=== PATIENT | female | born 1990 | race Asian ===

== ENCOUNTER 2019-10-31 14:14 | Emergency (ER) | payer OTHER ==
[~2019-10-31] VITALS: Ht 165.1 cm; Wt 90.7 kg
[~2019-10-31 14:14] MED LIST: ACEBUTCAFT PO; AEROECLIPSE II1 EACH MC; ALBU90OI INH; ALBU90OI61 INH; AMIT10 PO; AMOX500 PO; ASPI81EC PO; AZIT250 PO; BENZ100A PO; CEPH500 PO; CIPR500 PO; CLIN150 PO; CLIN300 PO; CODBUTACEC; CYCL10 PO; Cipro500 MG PO; DIPATR PO; DOXY100 PO; ESCI10; Flagyl500 MG PO; GABA300 PO; GUAI120S1 PO; HYDACE10B PO; HYDACE5 PO; IBUP600 PO; IBUP800; IBUP800 PO; LOPE2C PO; METPRE4DP PO; MUSCLE RELAXER; NAPR500 PO; NAPR500EC PO; NAPR550 PO; OMEP20ER PO; ONDA4 PO; ONDA4ODT MM; ONDA8ODT MM; OXYACE5T PO; PHENA200 PO; PRAM.5; PRED20 PO; PROM25 PO; Prednisone20 MG PO; QUET100; RANI150 PO; RESTLESS LEG MED; RXCEPH500 PO; RXOXYACE PO; RXPHEN200 PO; RXPROM25 PO; SULTRIDS PO; TRAM50; TRAM50 PO; TRI-SPRINTEC PO; Ultram50 MG PO; VICODIN; Ventolin Soln3 ML INH; YAZ BCP; Zithromax250 MG PO; Zofran8 MG PO; [UNRECOGNIZED DRUG - OTHER]; [UNRECOGNIZED DRUG - REMARK]; [UNRECOGNIZED DRUG - REMARK]
[2019-10-31 15:10] LABS: BASOPHILS ABSOLUTE AUTO 0.04 K/mm3 (0.00-0.23); BASOPHILS PERCENT AUTO 1 % (0-2); EOSINOPHILS ABSOLUTE AUTO 0.05 K/mm3 (0.00-0.68); EOSINOPHILS PERCENT AUTO 1 % (0-6); Hematocrit 39.5 % (33.0-51.0); Hemoglobin 12.9 g/dL (11.5-16.0); IMMATURE GRAN ABSOLUTE AUTO 0.04 K/mm3 (0.00-0.10); IMMATURE GRAN PERCENT AUTO 1 % (0-1); LYMPHOCYTES ABSOLUTE AUTO 1.27 K/mm3 (0.84-5.20); LYMPHOCYTES PERCENT AUTO 17 % (21-46); MONOCYTES ABSOLUTE AUTO 0.34 K/mm3 (0.16-1.47); MONOCYTES PERCENT AUTO 5 % (4-13); Mean Corpuscular HGB Conc 32.7 g/dL (31.5-36.5); Mean Corpuscular Volume 101 fL (80-100); Mean Platelet Volume 9.1 fL (9.1-12.4); NEUTROPHILS ABSOLUTE AUTO 5.59 K/mm3 (1.96-9.15); NEUTROPHILS PERCENT AUTO 76 % (41-73); Platelet Count 393 K/mm3 (150-400); RDW Coefficient Variation 15.6 % (11.7-14.2); RDW Standard Deviation 55.6 fL (35.1-46.3); Red Blood Cell Count 3.91 M/mm3 (3.80-5.20); White Blood Cell Count 7.33 K/mm3 (4.00-11.30)
[2019-10-31 15:30] LABS: Alanine Aminotransfer (ALT/SGP 24 U/L (12-78); Albumin, Blood 2.7 g/dL (3.4-5.0); Albumin/Globulin Ratio 0.6 (0.8-1.8); Alk Phos 153 U/L (50-136); Anion Gap 11 mmol/L (6-16); Aspartate Aminotrans (AST/SGOT 100 U/L (12-37); Blood Urea Nitrogen 5 mg/dL (8-24); Bun/Creatinine Ratio 12.7 (12.0-20.0); CO2, Blood 26 mmol/L (21-32); Calcium, Blood 8.8 mg/dL (8.5-10.1); Chloride, Blood 103 mmol/L (98-108); Creatinine, Blood 0.39 mg/dL (0.40-1.00); Globulin, Blood 4.5 g/dL (2.2-4.0); Glomerular Filtration Rate >60 (60-); Glucose, Blood 76 mg/dL (70-99); Sodium, Blood 140 mmol/L (136-145); Total Protein, Blood 7.2 g/dL (6.4-8.2)
[2019-10-31 15:48] LABS: Source, Urine Clean Catch
[2019-10-31 15:54] LABS: Appearance, Urine Hazy (Clear); Blood, Urine 1+ (Neg); Color, Urine Amber (P-Yellow); Glucose Qualitative, Urine Neg (Neg); Ketones, Urine 3+ (Neg); Leukocyte Esterase, Urine 1+ (Neg); Nitrite, Urine Neg (Neg); Protein, Urine 2+ (Neg); Urobilinogen, Urine 4+ (Normal)
[2019-10-31 16:10] LABS: Bilirubin, Urine 2+ (Neg)
[2019-10-31 16:11] LABS: Bacteria Many /hpf; Mucus Mod (0-Heavy); Red Blood Cells, Urine 0-2 /hpf (0-2); Squamous Epithelial Cells Mod /hpf (Few)
== END 2019-10-31 17:07 | disposition home or self-care (01) ==
LOC: ER 14:14
PROVIDERS: Physician Assistant
DX: K29.20 Alcoholic gastritis without bleeding (principal); F10.20 Alcohol dependence, uncomplicated; E87.6 Hypokalemia; J45.909 Unspecified asthma, uncomplicated; F17.200 Nicotine dependence, unspecified, uncomplicated; Z91.048 Other nonmedicinal substance allergy status; Z88.5 Allergy status to narcotic agent; Z79.899 Other long term (current) drug therapy; Z79.51 Long term (current) use of inhaled steroids
CPT/HCPCS: 36415; 80053; 81001; 81025; 83690; 85025; 87086; 99284

== ENCOUNTER 2020-10-11 19:31 | Emergency (ER) | payer OTHER ==
[~2020-10-11] VITALS: Ht 165.1 cm; Wt 93.0 kg
[~2020-10-11 19:31] MED LIST changes: +Librium25 MG PO
[2020-10-11] MEDS ORDERED: METF500 PO (20:28)
[2020-10-11 20:39] LABS: BASOPHILS ABSOLUTE AUTO 0.04 K/mm3 (0.00-0.23); BASOPHILS PERCENT AUTO 0 % (0-2); EOSINOPHILS PERCENT AUTO 0 % (0-6); Hemoglobin 13.6 g/dL (11.5-16.0); IMMATURE GRAN ABSOLUTE AUTO 0.07 K/mm3 (0.00-0.10); IMMATURE GRAN PERCENT AUTO 1 % (0-1); LYMPHOCYTES ABSOLUTE AUTO 0.93 K/mm3 (0.84-5.20); LYMPHOCYTES PERCENT AUTO 10 % (21-46); MONOCYTES ABSOLUTE AUTO 0.36 K/mm3 (0.16-1.47); MONOCYTES PERCENT AUTO 4 % (4-13); Mean Corpuscular HGB 33.8 pg (26.0-34.0); Mean Corpuscular HGB Conc 33.2 g/dL (31.5-36.5); Mean Corpuscular Volume 102 fL (80-100); Mean Platelet Volume 10.2 fL (9.1-12.4); NEUTROPHILS ABSOLUTE AUTO 7.65 K/mm3 (1.96-9.15); NEUTROPHILS PERCENT AUTO 85 % (41-73); Platelet Count 162 K/mm3 (150-400); RDW Coefficient Variation 16.9 % (11.7-14.2); RDW Standard Deviation 62.6 fL (35.1-46.3); Red Blood Cell Count 4.02 M/mm3 (3.80-5.20); White Blood Cell Count 9.05 K/mm3 (4.00-11.30)
[2020-10-11 20:51] LABS: Alanine Aminotransfer (ALT/SGP 56 U/L (12-78); Albumin, Blood 3.8 g/dL (3.4-5.0); Albumin/Globulin Ratio 0.8 (0.8-1.8); Alk Phos 156 U/L (50-136); Anion Gap 11 mmol/L (6-16); Aspartate Aminotrans (AST/SGOT 106 U/L (12-37); Bilirubin, Total 2.1 mg/dL (0.1-1.0); Blood Urea Nitrogen 6 mg/dL (8-24); Bun/Creatinine Ratio 13.4 (12.0-20.0); CO2, Blood 25 mmol/L (21-32); Calcium, Blood 9.1 mg/dL (8.5-10.1); Chloride, Blood 101 mmol/L (98-108); Creatinine, Blood 0.45 mg/dL (0.40-1.00); Ethanol (Alcohol), Blood, Med <3 mg/dL; Globulin, Blood 4.6 g/dL (2.2-4.0); Glomerular Filtration Rate >60 (60-); Glucose, Blood 110 mg/dL (70-99); Potassium, Blood 2.8 mmol/L (3.5-5.5); Salicylate <1.7 mg/dL (2.8-20.0); Sodium, Blood 137 mmol/L (136-145); Total Protein, Blood 8.4 g/dL (6.4-8.2)
[2020-10-11 20:52] LABS: Acetaminophen, Random <2.0 ug/mL (10.0-30.0)
[2020-10-11 21:26] LABS: Source, Urine Clean Catch
[2020-10-11 21:30] LABS: Appearance, Urine Cloudy (Clear); Bilirubin, Urine 2+ (Neg); Blood, Urine 2+ (Neg); Color, Urine Orange (P-Yellow); Glucose Qualitative, Urine Neg (Neg); Ketones, Urine 3+ (Neg); Leukocyte Esterase, Urine Neg (Neg); Nitrite, Urine Neg (Neg); Protein, Urine 2+ (Neg); Urobilinogen, Urine 3+ (Normal)
[2020-10-11 21:31] LABS: Amorphous Mod (0-Heavy); Bacteria Few /hpf; Red Blood Cells, Urine Not Seen /hpf (0-2); Squamous Epithelial Cells Few /hpf (Few); White Blood Cells, Urine Not Seen /hpf (0-5)
[2020-10-11 21:38] LABS: U Amphetamine Screen DETECTED; U Barbituate Screen Not Detected; U Benzodiazapine Screen Not Detected; U Buprenorphine Screen Not Detected; U Cannabinoids Screen DETECTED; U Cocaine Screen Not Detected; U Methadone Screen Not Detected; U Methamphetamine Screen DETECTED; U Opiates Screen Not Detected; U Oxycodone Screen Not Detected; U Phencyclidine Screen Not Detected; U Propoxyphene Screen Not Detected
[2020-10-11] MEDS ORDERED: POTCHL20ER PO (22:10)
== END 2020-10-11 22:31 | disposition home or self-care (01) ==
LOC: ER 19:31
PROVIDERS: Physician Assistant
DX: F15.10 Other stimulant abuse, uncomplicated (principal); E87.6 Hypokalemia; Z91.09 Other allergy status, other than to drugs and biological substances; Z88.5 Allergy status to narcotic agent; Z79.84 Long term (current) use of oral hypoglycemic drugs; Z79.899 Other long term (current) drug therapy; F17.210 Nicotine dependence, cigarettes, uncomplicated
CPT/HCPCS: 36415; 80053; 81001; 81025; 85025; 99284; A9270; G0480

== ENCOUNTER 2021-01-23 17:36 | Inpatient (IN) | payer OTHER ==
[~2021-01-23] VITALS: Ht 162.6 cm; Wt 89.0 kg
[~2021-01-23 17:36] MED LIST changes: +METF500 PO; +POTCHL20ER PO
[2021-01-23 19:07] LABS: BASOPHILS ABSOLUTE AUTO 0.08 K/mm3 (0.00-0.23); BASOPHILS PERCENT AUTO 1 % (0-2); EOSINOPHILS ABSOLUTE AUTO 0.01 K/mm3 (0.00-0.68); EOSINOPHILS PERCENT AUTO 0 % (0-6); Hematocrit 42.8 % (33.0-51.0); Hemoglobin 15.1 g/dL (11.5-16.0); IMMATURE GRAN ABSOLUTE AUTO 0.15 K/mm3 (0.00-0.10); IMMATURE GRAN PERCENT AUTO 2 % (0-1); LYMPHOCYTES ABSOLUTE AUTO 0.97 K/mm3 (0.84-5.20); LYMPHOCYTES PERCENT AUTO 10 % (21-46); MONOCYTES PERCENT AUTO 13 % (4-13); Mean Corpuscular HGB 34.5 pg (26.0-34.0); Mean Corpuscular HGB Conc 35.3 g/dL (31.5-36.5); Mean Corpuscular Volume 98 fL (80-100); Mean Platelet Volume 11.5 fL (9.1-12.4); NEUTROPHILS PERCENT AUTO 75 % (41-73); NRBC Auto 1.1 /100 WBC (0.0-0.2); Platelet Count 226 K/mm3 (150-400); RDW Coefficient Variation 13.4 % (11.7-14.2); RDW Standard Deviation 47.9 fL (35.1-46.3); Red Blood Cell Count 4.38 M/mm3 (3.80-5.20); White Blood Cell Count 9.51 K/mm3 (4.00-11.30)
[2021-01-23 19:23] LABS: Alanine Aminotransfer (ALT/SGP 53 U/L (12-78); Albumin, Blood 4.1 g/dL (3.4-5.0); Albumin/Globulin Ratio 0.7 (0.8-1.8); Alk Phos 137 U/L (50-136); Anion Gap 16 mmol/L (6-16); Aspartate Aminotrans (AST/SGOT 123 U/L (12-37); Bilirubin, Total 2.6 mg/dL (0.1-1.0); Blood Urea Nitrogen 27 mg/dL (8-24); Bun/Creatinine Ratio 27.5 (12.0-20.0); CO2, Blood 16 mmol/L (21-32); Calcium, Blood 10.3 mg/dL (8.5-10.1); Chloride, Blood 94 mmol/L (98-108); Creatinine, Blood 0.98 mg/dL (0.40-1.00); Globulin, Blood 5.9 g/dL (2.2-4.0); Glomerular Filtration Rate >60 (60-); Glucose, Blood 206 mg/dL (70-99); International Normalized Ratio 1.07; Potassium, Blood 3.5 mmol/L (3.5-5.5); Prothrombin Time Results 11.5 Sec (9.7-11.5); Sodium, Blood 126 mmol/L (136-145); Troponin I <0.015 ng/mL (0.000-0.040)
[2021-01-23 19:58] LABS: Influenza A, PCR NEGATIVE (NEGATIVE); Influenza B, PCR NEGATIVE (NEGATIVE); Resp Syncytial Virus, PCR NEGATIVE (NEGATIVE); SARS-Cov-2 (COVID-19) PCR, MMC NEGATIVE (NEGATIVE)
[2021-01-23] MEDS ORDERED: NEURONTIN300 MG PO (20:04)
[2021-01-23] MEDS ORDERED: GABA800 PO (20:07)
--- NOTE | 2021-01-23 21:35 | NUR ---
REPORT RECEIVED FROM MEDICAL ASSISTANT PRN, PT ARRIVED ON PCU FLOOR VIA STRETCHER, A&O, SLOW TO RESPOND, ABLE TO STANDE AND WALK TO PCU BED. IVF LR INFUSING TO LEFT AC 20G @ 500ML/HR. PT STATES UPPER ABD PAIN 10 OUT OF 10, NAUSEA, FEELING TIRED. VITALS STABLE. CONTINUE ASSESSMENT AND CARE.
--- NOTE | 2021-01-23 21:54 | NUR ---
UPDATE NURSE PRACTIONER SILKE DAWSON NOTIFIED OF PATIENT'S NAUSEA AND ABD PAIN. THUMB SEWER SAMIR AWARE THAT PATIENT IS ON A PROTONIX GTT AND WHAT HER MOST RECENT HGB LEVEL IS. ORDERS AWARE.
[2021-01-23 23:25] LABS: Hematocrit 32.3 % (33.0-51.0); Hemoglobin 11.6 g/dL (11.5-16.0)
--- NOTE | 2021-01-24 00:36 | NUR ---
UPDATE DR SMALL NOTIFIED OF CRITICAL MAG LEVEL. ORDERS RECEIVED.
--- NOTE | 2021-01-24 04:59 | NUR ---
ASSESS PT SLEPT ON AND OFF T/O NIGHT. UP WITH ASSIST OF 1 TO BR. CIWA REMAINS <5. ELECTROLYTES REPLACED, SEE MAR. AM LABS SENT. CONTINUE ASSESSMENT AND CARE.
[2021-01-24 05:51] LABS: BASOPHILS ABSOLUTE AUTO 0.04 K/mm3 (0.00-0.23); BASOPHILS PERCENT AUTO 1 % (0-2); EOSINOPHILS ABSOLUTE AUTO 0.03 K/mm3 (0.00-0.68); EOSINOPHILS PERCENT AUTO 1 % (0-6); Hematocrit 30.9 % (33.0-51.0); Hemoglobin 10.8 g/dL (11.5-16.0); IMMATURE GRAN ABSOLUTE AUTO 0.13 K/mm3 (0.00-0.10); IMMATURE GRAN PERCENT AUTO 2 % (0-1); LYMPHOCYTES ABSOLUTE AUTO 1.33 K/mm3 (0.84-5.20); LYMPHOCYTES PERCENT AUTO 24 % (21-46); MONOCYTES ABSOLUTE AUTO 0.74 K/mm3 (0.16-1.47); MONOCYTES PERCENT AUTO 14 % (4-13); Mean Corpuscular HGB 33.9 pg (26.0-34.0); Mean Corpuscular Volume 97 fL (80-100); NEUTROPHILS ABSOLUTE AUTO 3.22 K/mm3 (1.96-9.15); NEUTROPHILS PERCENT AUTO 59 % (41-73); NRBC ABSOLUTE 0.04 K/mm3 (0.00-0.02); NRBC Auto 0.7 /100 WBC (0.0-0.2); Platelet Count 157 K/mm3 (150-400); RDW Coefficient Variation 12.9 % (11.7-14.2); RDW Standard Deviation 46.1 fL (35.1-46.3); Red Blood Cell Count 3.19 M/mm3 (3.80-5.20); White Blood Cell Count 5.49 K/mm3 (4.00-11.30)
--- NOTE | 2021-01-24 06:18 | NUR ---
WAITING 5AM LAB RESULTS. BURLAP SPREADER AWARE. LAB STILL PROCESSING.
[2021-01-24 06:25] LABS: Alanine Aminotransfer (ALT/SGP 33 U/L (12-78); Alk Phos 95 U/L (50-136); Anion Gap 14 mmol/L (6-16); Aspartate Aminotrans (AST/SGOT 68 U/L (12-37); Blood Urea Nitrogen 24 mg/dL (8-24); CO2, Blood 19 mmol/L (21-32); Calcium, Blood 8.6 mg/dL (8.5-10.1); Chloride, Blood 97 mmol/L (98-108); Creatinine, Blood 0.69 mg/dL (0.40-1.00); Glomerular Filtration Rate >60 (60-); Glucose, Blood 91 mg/dL (70-99); Sodium, Blood 130 mmol/L (136-145)
[2021-01-24 06:27] LABS: Albumin/Globulin Ratio 0.8 (0.8-1.8); Globulin, Blood 3.9 g/dL (2.2-4.0); Potassium, Blood 2.1 mmol/L (3.5-5.5); Total Protein, Blood 6.9 g/dL (6.4-8.2)
--- NOTE | 2021-01-24 06:39 | NUR ---
CRITICAL LAB RESULTS RECEIVED-K 2.1. VARNISHER APPRENTICE AWARE. CALLED, AWAITING RETURN CALL.
[2021-01-24 11:55] LABS: Hematocrit 29.1 % (33.0-51.0); Hemoglobin 10.2 g/dL (11.5-16.0)
--- NOTE | 2021-01-24 13:40 | NUR ---
RECEIVED CRITICAL VALUE OF K+. DR DUMONT NOTIFIED AND NEW ORDERS PLACED.
--- NOTE | 2021-01-24 18:32 | NUR ---
SHIFT SUMMARY: NO ACUTE CHANGES T/OUT SHIFT. PT CONTINUES A&OX4, RESP EVEN AND UNLABORED ON RA, SR-ST ON MONITOR, USING CALL LIGHT APPROPRIATELY. PT CIWA SCORES CONTINUE <4, NOT REQUIRING PRN MEDICATIONS. PT DOES CONTINUE TO C/O UPPER ABD PAIN AND NAUSEA, IS BEING MEDICATED PER EMAR ACCORDINGLY. PT DIET ADVANCED TO CLEAR LIQUID, TOLERATING IN SMALL AMOUNTS. WILL CONTINUE TO MONITOR AND TREAT ACCORDINGLY UNTIL CHANGE OF SHIFT.
[2021-01-25 04:33] LABS: Hematocrit 30.5 % (33.0-51.0); Hemoglobin 10.8 g/dL (11.5-16.0); Mean Corpuscular HGB 34.6 pg (26.0-34.0); Mean Corpuscular HGB Conc 35.4 g/dL (31.5-36.5); Mean Corpuscular Volume 98 fL (80-100); Mean Platelet Volume 10.6 fL (9.1-12.4); NRBC ABSOLUTE 0.02 K/mm3 (0.00-0.02); NRBC Auto 0.4 /100 WBC (0.0-0.2); Platelet Count 147 K/mm3 (150-400); RDW Coefficient Variation 13.2 % (11.7-14.2); RDW Standard Deviation 46.7 fL (35.1-46.3); Red Blood Cell Count 3.12 M/mm3 (3.80-5.20); White Blood Cell Count 4.67 K/mm3 (4.00-11.30)
[2021-01-25 05:00] LABS: Anion Gap 8 mmol/L (6-16); Blood Urea Nitrogen 18 mg/dL (8-24); Bun/Creatinine Ratio 33.8 (12.0-20.0); CO2, Blood 25 mmol/L (21-32); Calcium, Blood 8.5 mg/dL (8.5-10.1); Chloride, Blood 98 mmol/L (98-108); Creatinine, Blood 0.53 mg/dL (0.40-1.00); Glomerular Filtration Rate >60 (60-); Glucose, Blood 90 mg/dL (70-99); Potassium, Blood 2.5 mmol/L (3.5-5.5); Sodium, Blood 131 mmol/L (136-145)
--- NOTE | 2021-01-25 06:03 | NUR ---
*SHIFT SUMMARY* PATIENT A&OX4, CRANE, AND FOLLOWING COMMANDS. SOME DIZZINESS NOTED UPON AMBULATION SO REMAINS STAND BY ASSIST IN ROOM. HAD A SHOWER AT START OF SHIFT. PAIN AND NAUSEA DECENTLY CONTROLLED AT THIS TIME WITH PRN FENTANYL AND ZOFRAN. SR ON THE MONITOR. RA. VSS. TOLERATING CLD BUT THEN CRAMPING BEGAN ONE HOUR POST MEAL WITH LITTLE RELIEF. ENCOURAGE SLOW INTAKE. WILL CONTINUE TO MONITOR.
--- NOTE | 2021-01-25 16:39 | NUR ---
END OF SHIFT REPORT: PEDIATRIC RADIOLOGIST WORKINGN WITH PATY AMARO RN. ASSUMED CARE FOR PATIENT AROUND 0700. PT IS A&OX4. PT IS ON TELE, SINUS RHYTHM TO SINUS TACHYCARDIA RATE RANGING FROM 90-110'S. PATIENT HAS BEEN HAVING SOME EPIGASTRIC PAIN AND WAS ON A CLEAR LIQUID DIET. DR. DUMONT ALLOWED FOR FULL DIET TOLERATED. PT HAD A REGULAR DIET FOR LUNCH WHICH SHE REPORTS SHE TOLERATED WELL. PT DID HAVE MULTIPLE SNACKS THROUGH OUT THE DAY. NO VOMITING OR NAUSEA. STILL HAVING INTERMITTENT EPIGASTRIC PAIN THAT SHE RATES A 6/10. DR. DUMONT PUT IN AN ORDER FOR OXYCODONE Q6 PRN, WITH MILD RELIEF OF PAIN. SHE HAS BEEN HYPOKALEMIC AND RECEIVED IV POTASSIUM WHICH BROUGHT HER POTASSIUM FROM 2.5 TO 2.8. PT DENIES ANY CHEST PAIN OR HEART PALPITATIONS. PT IS ABLE TO MOVE FREELY IN BED AND POSITIONS FREQUENTLY. SHE USES THE CALL LIGHT APPROPRIATELY. PT DENIES ANY WITHDRAWL SYMPTOMS. PATIENT IS RESTING IN BED. BED IS AT THE LOWEST POSITION AND CALL LIGHT IS WITHIN REACH. NO ACUTE COMPLAINTS FROM THE PATIENT AT THIS TIME.
[2021-01-26 04:10] LABS: Hematocrit 31.2 % (33.0-51.0); Hemoglobin 10.7 g/dL (11.5-16.0); Mean Corpuscular HGB 33.2 pg (26.0-34.0); Mean Corpuscular HGB Conc 34.3 g/dL (31.5-36.5); Mean Corpuscular Volume 97 fL (80-100); Mean Platelet Volume 11.1 fL (9.1-12.4); NRBC ABSOLUTE 0.03 K/mm3 (0.00-0.02); NRBC Auto 0.5 /100 WBC (0.0-0.2); Platelet Count 191 K/mm3 (150-400); RDW Coefficient Variation 13.2 % (11.7-14.2); Red Blood Cell Count 3.22 M/mm3 (3.80-5.20); White Blood Cell Count 5.57 K/mm3 (4.00-11.30)
[2021-01-26 04:35] LABS: Anion Gap 8 mmol/L (6-16); Blood Urea Nitrogen 12 mg/dL (8-24); Bun/Creatinine Ratio 22.7 (12.0-20.0); CO2, Blood 25 mmol/L (21-32); Calcium, Blood 8.8 mg/dL (8.5-10.1); Chloride, Blood 98 mmol/L (98-108); Creatinine, Blood 0.53 mg/dL (0.40-1.00); Glomerular Filtration Rate >60 (60-); Glucose, Blood 135 mg/dL (70-99); Potassium, Blood 2.8 mmol/L (3.5-5.5); Sodium, Blood 131 mmol/L (136-145)
--- NOTE | 2021-01-26 04:51 | NUR ---
LAB PT HAD LAB RESULT: POTASSIUM 2.8. CALL PLACED TO MD SMALL. MD SMALL W/ ORDERS FOR 40 MEQ IV POTASSIUM X1.
--- NOTE | 2021-01-26 06:24 | NUR ---
SHIFT SUMMARY PT A&OX4. LETHARGIC. SP02>92% ON RA. TELEMETRY READS ST, HR 90'S-110'S. PT SBA TO BSC. ATTEMPTED TO ASSIST PT TO BATHROOM, PT STATED SHE WAS DIZZY WHILE STANDING. PT WAS CLUMSY T/O NIGHT, SPILLED WATER CUPS ON FLOOR MULTIPLE TIMES. PT C/O OF 8/10 EPIGASTRIC PAIN. MEDICATED W/ OXYCODONE PER EMAR X2. PT POTASSIUM LEVEL LOW THIS AM, SEE PREVIOUS NOTE. PT ATE HALF A SANDWICH DURING SHIFT. CALL LIGHT IN REACH. WILL GIVE REPORT TO ONCOMING NURSE.
--- NOTE | 2021-01-26 08:00 | NUR ---
pt laying in bed awake a/ox3, pleasant and cooperative with care, very flat affect, no signs of w/d, she is weak, she wanted to go into the bathroom and is able to stand ok, but was too wobely to safely ambulate to the bathroom, she states she is dizzy at times, lungs are dim t/o, resp even and unlabored, no cough noted, hrr, tele in place running sr to st per monitor, see strip, no edema noted, ppp+1, cap refill <3sec, vs stable, afebrile, iv site is clear and patent, btx4, abd flat soft nontender, voids without diff, skin pale, scattered brusinings, scab to knee, otherwise intact, maew, weak, jenae, call light in reach.
[2021-01-26 15:09] LABS: Magnesium, Blood 1.6 mg/dL (1.6-2.4); Potassium, Blood 3.4 mmol/L (3.5-5.5)
--- NOTE | 2021-01-26 17:00 | NUR ---
pt working with P.T. is to use a walker, has been transfered to medical floor, report given to Ofe MENA. pt transfered via wheelchair, with all her belongings.
--- NOTE | 2021-01-26 17:29 | NUR ---
PT ARRIVE TO UNIT VIA WHEELCHAIR. PT A/O X4 AND COOPERATIVE OF CARE. CONDUCTED ASSESSMENT, LUNGS CLEAR, PULSES STRONG IN ALL EXTREMITIES. NO C/O SOB, CHEST PAIN/PRESSURE. PT REPORTS ANXIOUS FEELINGS. CIWA CONDUCTED SCORE OF 5. VSS. O2 SATS 97 RA. PT SITTING ON BEDSIDE. WILL CONTINUE TO MONITOR.
[2021-01-27 04:48] LABS: Hematocrit 32.3 % (33.0-51.0); Hemoglobin 10.8 g/dL (11.5-16.0); Mean Corpuscular HGB 33.2 pg (26.0-34.0); Mean Corpuscular HGB Conc 33.4 g/dL (31.5-36.5); Mean Corpuscular Volume 99 fL (80-100); Mean Platelet Volume 10.9 fL (9.1-12.4); NRBC ABSOLUTE 0.02 K/mm3 (0.00-0.02); NRBC Auto 0.3 /100 WBC (0.0-0.2); Platelet Count 246 K/mm3 (150-400); RDW Coefficient Variation 13.5 % (11.7-14.2); RDW Standard Deviation 49.1 fL (35.1-46.3); Red Blood Cell Count 3.25 M/mm3 (3.80-5.20); White Blood Cell Count 6.26 K/mm3 (4.00-11.30)
[2021-01-27 05:24] LABS: Alanine Aminotransfer (ALT/SGP 34 U/L (12-78); Albumin, Blood 3.1 g/dL (3.4-5.0); Albumin/Globulin Ratio 0.8 (0.8-1.8); Alk Phos 122 U/L (50-136); Anion Gap 5 mmol/L (6-16); Aspartate Aminotrans (AST/SGOT 77 U/L (12-37); Bilirubin, Total 1.3 mg/dL (0.1-1.0); Blood Urea Nitrogen 10 mg/dL (8-24); Bun/Creatinine Ratio 21.9 (12.0-20.0); CO2, Blood 29 mmol/L (21-32); Calcium, Blood 9.6 mg/dL (8.5-10.1); Chloride, Blood 96 mmol/L (98-108); Creatinine, Blood 0.46 mg/dL (0.40-1.00); Globulin, Blood 3.8 g/dL (2.2-4.0); Glomerular Filtration Rate >60 (60-); Glucose, Blood 106 mg/dL (70-99); Magnesium, Blood 1.6 mg/dL (1.6-2.4); Potassium, Blood 3.2 mmol/L (3.5-5.5); Sodium, Blood 130 mmol/L (136-145); Total Protein, Blood 6.9 g/dL (6.4-8.2)
--- NOTE | 2021-01-27 05:24 | NUR ---
EVERT WAS AWAKE WATCHING TV MOST OF THE NIGHT DRIFTING OFF TO SLEEP FOR SHORT PERIODS OF TIME. CIWA SCORES OVERNIGHT WERE A STEADY 5. PATIENT ASKED FOR ANXIETY MEDICATION EARLY IN SHIFT AND RECEIVED 1MG ATIVAN WITH STATED GOOD RELIEF. AROUND 0300, SHE STATED SHE WAS QUITE ANXIOUS AND WANTED IV ATIVAN AGAIN. THIS RN BROUGHT PO LITHIUM IT APPEARED HER CIWA WAS GOING UP, THEN PATIENT REFUSED IT WHEN SHE FOUND OUT WHAT IT WAS SAYING IT GAVE HALLUCINATIONS. WHEN I RETURNED WITH 1MG IV ATIVAN, PATIENT WAS FAST ASLEEP. CIWA NEVER CHANGED FROM A 5. PATIENT ALSO COMPLAINED OF OF FEELING LIKE SHE HAD A UTI. CLEAN CATCH SEND TO LAB
[2021-01-27 05:47] LABS: Source, Urine Clean Catch
[2021-01-27 05:51] LABS: Blood, Urine 5+ (Neg); Glucose Qualitative, Urine Neg (Neg); Ketones, Urine Neg (Neg); Leukocyte Esterase, Urine 3+ (Neg); Nitrite, Urine Pos (Neg); Protein, Urine 3+ (Neg); Urobilinogen, Urine 2+ (Normal)
[2021-01-27 06:00] LABS: Bilirubin, Urine 1+ (Neg)
[2021-01-27 06:01] LABS: Appearance, Urine Hazy (Clear); Bacteria Many /hpf; Color, Urine Yellow (P-Yellow); Red Blood Cells, Urine TNTC /hpf (0-2); Squamous Epithelial Cells Few /hpf (Few); White Blood Cells, Urine TNTC /hpf (0-5)
--- NOTE | 2021-01-27 16:21 | NUR ---
PT PLEASANT TODAY. HAS BEEN WALKING SELF TO BATHROOM. A/O X3. CWA CANCELLED THIS AM. ATIVAN ADDED FOR ANX PER DR DUMONT. PT STATES STILL HAS PAIN IN ABD, BUT DOESNOT INCREASE WITH EATING. NO NEW CONCERNS NOTED. SISTER IN TO VISIT TODAY. BED IN LOW POSITION, CALL LITE IN REACH, CALLS APPROP
--- NOTE | 2021-01-28 05:56 | NUR ---
SHIFT SUMMARY A/O, ABLE TO MAKE NEEDS KNOWN. COOPERATIVE WITH CARE. CALLS AND ANSWERS QUESTIONS APPROPRIATELY. C/O PAIN/DISCOMFRT TO UPPER ABDOMEN AND BACK; MEDICATED PER EMAR. REQUESTED PRN FOR ANXIETY; MEDICATED PER EMAR. ENCOURAGE TO AMBULATE HALLWAY WITH STANDBY ASSISTANCE. STATED FELT A LITTLE BETTER. AWAITING GI CONSULT THIS DAY. EXPRESSES EAGERNESS TO GO HOME. TELE RUNNING ST IN THE 100's. APPEARED TO REST MINIMALLY. VSS/AFEBRILE. NO ACUTE CHANGES NOTED. BED REMAINED IN LOWEST POSITION. CALL LIGHT AND BELONGINGS WITHIN REACH. CONTINUE WITH CURRENT PLAN OF CARE. REPORT TO ONCOMING RN.
[2021-01-28] MEDS ORDERED: ACET325 PO (13:55)
[2021-01-28] MEDS ORDERED: ATIVAN0.5 MG PO (13:56)
[2021-01-28] MEDS ORDERED: PROM25 PO (13:57)
[2021-01-28] MEDS ORDERED: OXAYDO5 M1 PO (13:57)
[2021-01-28] MEDS ORDERED: PANT40 PO (13:57)
--- NOTE | 2021-01-28 14:17 | NUR ---
PT IS ABLE TO TOLERATE A REGULAR DIET WITHOUT INCREASE IN PAIN BUT REQUIRES PAIN MEDICATION. PAIN DOES NOT APPEAR TO CHANGE IF PT EATS OR NOT.
--- NOTE | 2021-01-28 14:51 | NUR ---
DISCHARGE PT PROVIDED WITH WRITTEN AND VERBAL DISCHARGE INSTRUCTIONS, SHE REPORTED UNDERSTANDING. SCRIPTS FOR ATIVAN AND OXYCODONE PROVIDED FOR PT. OTHER SCRIPTS FAXED TO [facility]. PT ESCORTED OUT IN W/C BY KIM STYLES.
== END 2021-01-28 15:14 | disposition home health service (06) | DRG 377 ==
LOC: ER 17:36 → PCU 19:56 → MEDS 01-24 14:18 → PCU 01-24 14:19 → MEDS 01-26 17:05
PROVIDERS: Emergency Medicine; Internal Medicine; Physician Assistant; ADMIT Internal Medicine
PROC: HZ2ZZZZ Detoxification Services for Substance Abuse Treatment (ICD-10-PCS; principal; 2021-01-24)
DX: K29.21 Alcoholic gastritis with bleeding (principal); K85.20 Alcohol induced acute pancreatitis without necrosis or infection; F10.239 Alcohol dependence with withdrawal, unspecified; E87.1 Hypo-osmolality and hyponatremia; N30.00 Acute cystitis without hematuria; Z20.822 Contact with and (suspected) exposure to COVID-19; J45.909 Unspecified asthma, uncomplicated; K22.6 Gastro-esophageal laceration-hemorrhage syndrome; G43.809 Other migraine, not intractable, without status migrainosus; M54.5 Low back pain; R11.2 Nausea with vomiting, unspecified; G89.29 Other chronic pain; K70.10 Alcoholic hepatitis without ascites; G62.9 Polyneuropathy, unspecified; F41.9 Anxiety disorder, unspecified; F17.210 Nicotine dependence, cigarettes, uncomplicated; E28.2 Polycystic ovarian syndrome; Z90.49 Acquired absence of other specified parts of digestive tract; Z90.89 Acquired absence of other organs; Z98.890 Other specified postprocedural states; Z88.6 Allergy status to analgesic agent; Z91.048 Other nonmedicinal substance allergy status; Z79.899 Other long term (current) drug therapy
CPT/HCPCS: 0241U; 36415; 71045; 74177; 76705; 80048; 80053; 81001; 82140; 82272; 83690; 83735; 84132; 84484; 85014; 85018; 85025; 85027; 85610; 86850; 86900; 86901; 87086; 87186; 87205; 93005; 93010; 96374; 96375; 96376; 97110; 97112; 97162; 99285-25; A9270; C9113; G0378; G0480; J0696; J0780; J2060; J2405; J2765; J3010; J3411; J3475; J3480; J7030; J7040; J7120; Q9967

== ENCOUNTER 2021-11-06 07:50 | Day surgery (SDC) | payer OTHER ==
[~2021-11-06] VITALS: Ht 165.1 cm; Wt 128.4 kg
[~2021-11-06 07:50] MED LIST changes: +ACET325 PO; +ATIVAN0.5 MG PO; +GABA800 PO; +NEURONTIN300 MG PO; +OXAYDO5 M1 PO; +PANT40 PO
[2021-11-06] MEDS ORDERED: OMEP20ER (08:12)
[2021-11-06] MEDS ORDERED: TOPI25 (08:12)
[2021-11-06] MEDS ORDERED: HYDHCL25 (08:13)
[2021-11-06] MEDS ORDERED: TIZA4 (08:13)
[2021-11-06] MEDS ORDERED: FURO40 (08:13)
[2021-11-06] MEDS ORDERED: METF500 (08:14)
--- NOTE | 2021-11-06 09:44 | NUR ---
11/06/21 0944 Shantel Wise states case needs to be rescheduled due to it not being 6 weeks post symptomatic covid positive result.
== END 2021-11-06 09:52 | disposition home or self-care (01) ==
LOC: ORSCSDS 07:50
DX: K92.0 Hematemesis (principal); Z53.9 Procedure and treatment not carried out, unspecified reason
CPT/HCPCS: 82947; J7120

== ENCOUNTER 2024-07-23 08:57 | Day surgery (SDC) | payer OTHER ==
[~2024-07-23] VITALS: Ht 167.6 cm; Wt 126.4 kg
[~2024-07-23 08:57] MED LIST changes: +Dexamethasone Sod Phos 10 MG/ML 1ML VIAL ONE; +FURO40; +FentaNYL Citrate 50 MCG/ML 2 ML Injection ONE; +HYDHCL25; +Ketorolac Tromethamine 30mg Vial ONE; +METF500; +OMEP20ER; +Ondansetron HCl 2 MG / ML 2ML Vial ONE; +Phenylephrine HCl 100 MCG/ML-NS 10MLSYR (1MG/10ML) ONE; +Rocuronium Bromide 10 MG/ML 5ML Injection IV ONE; +Sugammadex Sodium 200 MG/2ML SDV (100 MG/ML) ONE; +TIZA4; +TOPI25; +propofoL 20 ML IV ONE
[2024-07-23] MEDS ORDERED: GABAPENTIN600 MG PO (09:47)
[2024-07-23] MEDS ORDERED: ZANAFLEX413 PO (09:48)
[2024-07-23] MEDS ORDERED: DULOXETINE HCL60 M1 (09:48)
[2024-07-23] MEDS ORDERED: NEURONTIN300 MG PO (09:48)
[2024-07-23] MEDS ORDERED: BUSPIRONE HCL10 M6 PO (09:49)
[2024-07-23] MEDS ORDERED: ARIPIPRAZOLE30 MG PO (09:49)
[2024-07-23] MEDS ORDERED: MELO7.5 PO (09:51)
[2024-07-23] MEDS ORDERED: Lactated Ringer's 1,000 ML IV ONE ×2 (09:55→12:18)
--- NOTE | 2024-07-23 09:59 | NUR ---
07/23/24 0959 Jennifer Trejo S/O RICK AT BEDSIDE
[2024-07-23] MEDS ORDERED: Midazolam HCl 1MG / ML 2ML Vial ONE (11:26)
[2024-07-23] MEDS ORDERED: Rocuronium Bromide 10 MG/ML 5ML Injection IV ONE ×3 (11:52→12:19)
[2024-07-23] MEDS ORDERED: propofoL 20 ML IV ONE (12:02)
--- NOTE | 2024-07-23 12:14 | NUR ---
07/23/24 1214 Dacia Zaidi 0.15 ML OF EPI (1MG/ML) ADDED TO 0.5% BUPIVACAINE (150MG/30ML) TO MAKE BUPIVACAINE 0.5% WITH EPI 1:200,000 ON FIELD.
[2024-07-23] MEDS ORDERED: Bupivacaine 0.5% W/EPI 1:200000 SDV 30ML INJ ONE (12:17)
[2024-07-23] MEDS ORDERED: Sugammadex Sodium 200 MG/2ML SDV (100 MG/ML) ONE (12:35)
[2024-07-23] MEDS ORDERED: OxyCODONE 5 mg/Acetamin 325 mg TABLET ONE (13:24)
[2024-07-23] MEDS ORDERED: FentaNYL Citrate 50 MCG/ML 2 ML Injection ONE (13:24)
[2024-07-23 13:33] VITALS: BP 123/64
--- NOTE | 2024-07-23 13:37 | NUR ---
07/23/24 1337 Tori Shepherd PT C/O PAIN WAS A 10/10, PT RECEIVED ONE DOSE OF (25MCG TOTAL) OF FENTANYL VIA IV PUSHED SLOWLY. PT RECEIVED A PAIN PILL AT 1330, PERCOCET 5/325MG GIVEN. 1337: RE-ASSESSED PAIN LEVEL AND SHE IS NOW A 6/10.
== END 2024-07-23 13:48 | disposition home or self-care (01) ==
LOC: ORSCSDS 08:57
PROVIDERS: Obstetrics & Gynecology
PROC: 0U5F4ZZ Destruction of Cul-de-sac, Percutaneous Endoscopic Approach (ICD-10-PCS; principal; 2024-07-23 10:15)
DX: N80.329 Endometriosis of the posterior cul-de-sac, unspecified depth (principal); E28.2 Polycystic ovarian syndrome; F17.210 Nicotine dependence, cigarettes, uncomplicated; K21.9 Gastro-esophageal reflux disease without esophagitis; E66.01 Morbid (severe) obesity due to excess calories; Z68.42 Body mass index [BMI] 45.0-49.9, adult; Z79.899 Other long term (current) drug therapy
CPT/HCPCS: A9270; J1100; J1885; J2250; J2371; J2405; J2704; J3010

== ENCOUNTER 2024-12-07 19:09 | Emergency (ER) | payer OTHER ==
[~2024-12-07] VITALS: Ht 167.6 cm; Wt 127.0 kg
[~2024-12-07 19:09] MED LIST changes: +ARIPIPRAZOLE30 MG PO; +BUSPIRONE HCL10 M6 PO; +DULOXETINE HCL60 M1; -Dexamethasone Sod Phos 10 MG/ML 1ML VIAL ONE; -FentaNYL Citrate 50 MCG/ML 2 ML Injection ONE; +GABAPENTIN600 MG PO; -Ketorolac Tromethamine 30mg Vial ONE; +MELO7.5 PO; -Ondansetron HCl 2 MG / ML 2ML Vial ONE; -Phenylephrine HCl 100 MCG/ML-NS 10MLSYR (1MG/10ML) ONE; -Rocuronium Bromide 10 MG/ML 5ML Injection IV ONE; -Sugammadex Sodium 200 MG/2ML SDV (100 MG/ML) ONE; +ZANAFLEX413 PO; -propofoL 20 ML IV ONE
[2024-12-07 19:16] VITALS: BP 153/93
[2024-12-07] MEDS ORDERED: TraMADol HCl 50 MG Tab PO ONE (22:25)
[2024-12-07] MEDS ORDERED: Methocarbamol 500 MG Tab PO ONE (22:25)
[2024-12-07] MEDS ORDERED: Robaxin750 MG PO (23:08)
[2024-12-07] MEDS ORDERED: DIAZ2 PO (23:08)
[2024-12-07] MEDS ORDERED: TRAM50 PO (23:10)
== END 2024-12-07 23:14 | disposition home or self-care (01) ==
LOC: ER 19:09
DX: M54.50 Low back pain, unspecified (principal); G89.29 Other chronic pain; Z76.0 Encounter for issue of repeat prescription; G43.909 Migraine, unspecified, not intractable, without status migrainosus; J45.909 Unspecified asthma, uncomplicated; F17.210 Nicotine dependence, cigarettes, uncomplicated; Z79.899 Other long term (current) drug therapy; Z91.048 Other nonmedicinal substance allergy status; Z88.5 Allergy status to narcotic agent
CPT/HCPCS: 72131; 99283-25; A9270

== ENCOUNTER 2025-01-16 08:15 | Emergency (ER) | payer OTHER ==
[~2025-01-16] VITALS: Ht 167.6 cm; Wt 127.0 kg
[~2025-01-16 08:15] MED LIST changes: +DIAZ2 PO; +Robaxin750 MG PO
[2025-01-16 08:30] VITALS: BP 132/90
[2025-01-16] MEDS ORDERED: NS 1,000 ML IV SCH (08:40)
[2025-01-16] MEDS ORDERED: Albuterol 2.5 MG/3 ML VIAL INH ONE (08:40)
[2025-01-16 09:14] LABS: Albumin, Blood 3.4 g/dL (3.4-5.0); Albumin/Globulin Ratio 0.8 (0.8-1.8); Bilirubin, Total 0.4 mg/dL (0.1-1.0); Bun/Creatinine Ratio 31.3 (12.0-20.0); Creatinine, Blood 0.45 mg/dL (0.40-1.00); Globulin, Blood 4.5 g/dL (2.2-4.0); Potassium, Blood 4.4 mmol/L (3.5-5.5); Total Protein, Blood 7.9 g/dL (6.4-8.2)
[2025-01-16 09:30] LABS: BASOPHILS ABSOLUTE AUTO 0.05 K/mm3 (0.00-0.23); BASOPHILS PERCENT AUTO 1 % (0-2); EOSINOPHILS ABSOLUTE AUTO 0.16 K/mm3 (0.00-0.68); EOSINOPHILS PERCENT AUTO 2 % (0-6); Hematocrit 40.7 % (33.0-51.0); Hemoglobin 12.9 g/dL (11.5-16.0); IMMATURE GRAN ABSOLUTE AUTO 0.07 K/mm3 (0.00-0.10); IMMATURE GRAN PERCENT AUTO 1 % (0-1); LYMPHOCYTES ABSOLUTE AUTO 2.46 K/mm3 (0.84-5.20); LYMPHOCYTES PERCENT AUTO 28 % (21-46); MONOCYTES ABSOLUTE AUTO 0.61 K/mm3 (0.16-1.47); MONOCYTES PERCENT AUTO 7 % (4-13); Mean Corpuscular HGB 28.4 pg (26.0-34.0); Mean Corpuscular HGB Conc 31.7 g/dL (31.5-36.5); Mean Corpuscular Volume 90 fL (80-100); Mean Platelet Volume 10.2 fL (9.1-12.4); NEUTROPHILS ABSOLUTE AUTO 5.47 K/mm3 (1.96-9.15); NEUTROPHILS PERCENT AUTO 62 % (41-73); Platelet Count 301 K/mm3 (150-400); RDW Coefficient Variation 13.2 % (11.7-14.2); RDW Standard Deviation 43.1 fL (35.1-46.3); Red Blood Cell Count 4.54 M/mm3 (3.80-5.20); White Blood Cell Count 8.82 K/mm3 (4.00-11.30)
[2025-01-16 09:31] LABS: Influenza A, PCR NEGATIVE (NEGATIVE); Influenza B, PCR NEGATIVE (NEGATIVE); Resp Syncytial Virus, PCR NEGATIVE (NEGATIVE); SARS-Cov-2 (COVID-19) PCR, MMC NEGATIVE (NEGATIVE)
[2025-01-16] MEDS ORDERED: CODITUSSIN AC473 M1 PO (10:11)
[2025-01-16] MEDS ORDERED: AMOCLA875 PO (10:11)
[2025-01-16] MEDS ORDERED: AZIT250 PO (10:11)
[2025-01-18] MEDS ORDERED: CODEINE-GUAIFE120 M1 PO (10:06)
== END 2025-01-16 10:25 | disposition home or self-care (01) ==
LOC: ER 08:15
PROVIDERS: Student in an Organized Health Care Education/Training Program
DX: J18.1 Lobar pneumonia, unspecified organism (principal); J45.901 Unspecified asthma with (acute) exacerbation; F17.200 Nicotine dependence, unspecified, uncomplicated
CPT/HCPCS: 0241U; 71046; 80053; 85025; 94640; 94664; 96360; 99285-25; J7030

== ENCOUNTER → 2025-09-03 | Outpatient (CLI) | payer OTHER ==
[~2025-09-03] MED LIST changes: +AMOCLA875 PO; +CODEINE-GUAIFE120 M1 PO; +CODITUSSIN AC473 M1 PO
== END ==
LOC: LAB 16:41 → LAB SHORT 16:41
DX: N39.0 Urinary tract infection, site not specified (principal)
CPT/HCPCS: 87077; 87086; 87186